=== PATIENT | male | born 1990 | race Two or more races ===

== ENCOUNTER 2022-11-28 09:47 | Inpatient (IN) ==
[2022-11-28] MEDS ORDERED: STAT IV Infusion **Titration per Protocol STA ×3 (10:01→20:56)
[2022-11-28] MEDS ORDERED: NOREPINEPHRINE/D5W 4 MG/250 ML IV ONE (10:07)
[2022-11-28] MEDS ORDERED: SODIUM BICARB 8.4% INJ 50 MEQ/50 ML SYR IV STA ×2 (10:09→23:25)
[2022-11-28 10:14] LABS: iSTAT Creatinine 1.2 mg/dl (0.6-1.3); iSTAT Hemoglobin 14.6 g/dl (14.0-18.0); iSTAT Ionized Calcium 1.13 mmol/l (1.12-1.32); iSTAT Potassium 4.6 mmol/L (3.3-5.0)
[2022-11-28] MEDS ORDERED: Patient's HEIGHT &/or WEIGHT Needed SCH (10:15)
[2022-11-28 10:19] LABS: Hematocrit (blood only) 45.3 % (42.0-52.0); Hemoglobin 14.5 g/dl (14.0-18.0); Mean Corpuscular Volume 96.8 fL (80.0-100.0); Mean Platelet Volume 12.1 fL (9.4-12.4); Nucleated RBC # (auto) 0.04 K/uL (0-0.12); Nucleated RBC % (auto) 0.3 %; Platelet Count 151 K/uL (130-400); RDW Coefficient of Variation 12.9 % (11.5-14.5); RDW Standard Deviation 45.9 fL (36.4-46.3); Red Blood Count 4.68 M/uL (4.70-6.10); White Blood Count 13.59 K/ul (4.8-10.8)
[2022-11-28 10:23] LABS: iSTAT Arterial Blood Gas HCO3 17 meg/L (19-24); iSTAT Arterial Blood Gas pCO2 81 mmHg (35-46); iSTAT Arterial Blood Gas pH 6.93 (7.35-7.45); iSTAT Arterial Blood Gas pO2 147 mmHg (80-95); iSTAT Carbon Dioxide 19 mmol/L (24-31); iSTAT Hematocrit 44 % (42-52); iSTAT Potassium 3.7 mmol/L (3.3-5.0); iSTAT Sodium 138 mmol/L (135-144)
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
[2022-11-28 10:34] LABS: Partial Thromboplastin Ratio 1.3; Partial Thromboplastin Time 35.9 Seconds (21.0-31.0); Prothrombin Time 11.1 Seconds (9.0-12.0)
--- NOTE | 2022-11-28 10:51 | XRay Report ---
XR chest 1V portable HISTORY: 32 years-old Male Chest pain, nonspecific acute chest pain COMPARISON: None TECHNIQUE: AP supine view of the chest FINDINGS: Endotracheal tube overlies the midline, 7 mm superior to the midline. Cardiomediastinal and hilar mariann houettes are within normal limits. No pneumothorax, pleural effusion or overt pulmonary edema. Mild i ll-defined interstitial opacities of the left lung may be artifactual. Bones appear grossly intact. IMPRESSION: Endotracheal tube terminates less than 1 cm superior to the marcelle. Retraction of a few c entimeters with follow-up chest radiograph recommended. ACT 112: Negative or not required by law. The above report was generated using voice recognition software. It may contain grammatical, syntax o r spelling errors. Electronically signed by: Venkata Hannah M.D. 11/28/2022 10:50 AM
[2022-11-28] MEDS ORDERED: OPTIRAY 320 500ml IV ONE (10:52)
[2022-11-28 10:54] LABS: Albumin Globulin Ratio 1.6 (0.9-2); Albumin Level 3.4 gm/dl (3.4-5.0); Bilirubin,Total 0.4 mg/dl (0.2-1.0); Calcium 8.1 mg/dl (8.5-10.1); Creatinine Clr Calc Pharmacy 84.5 ml/min; Est GFR (African American) 93.7 ml/min; Est GFR (Non-African American) 80.9 ml/min; Globulin 2.1 gm/dl (2.5-4.0); Potassium 4.5 mmol/L (3.5-5.1); Total Protein 5.5 gm/dl (6.0-8.3); Troponin I High Sensitivity 91.5 pg/ml (0-20)
[2022-11-28] MEDS ORDERED: Patient's ALLERGY Info needs ENTERED SCH (11:00)
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
[2022-11-28 11:28] LABS: iSTAT Arterial Blood Gas HCO3 22 meg/L (19-24); iSTAT Arterial Blood Gas pCO2 45 mmHg (35-46); iSTAT Arterial Blood Gas pO2 340 mmHg (80-95); iSTAT Carbon Dioxide 23 mmol/L (24-31); iSTAT Hematocrit 49 % (42-52); iSTAT Hemoglobin 16.7 g/dl (14.0-18.0); iSTAT Potassium 3.7 mmol/L (3.3-5.0); iSTAT Sodium 137 mmol/L (135-144)
[2022-11-28 11:32] LABS: ANC (manual) 1.22 K/uL (1.4-6.5); Echinocytes 1+; Eosinophils # (manual) 0.14 K/uL (0-0.50); Eosinophils % (manual) 1 %; Large Granular Lymph # (manua 3.81 K/uL; Large Granular Lymph % (manual) 28 %; Lymphocytes # (manual) 8.29 K/uL (1.2-3.4); Lymphocytes % (manual) 61 %; Monocytes # (manual) 0.27 K/uL (0.11-0.59); Monocytes % (manual) 2 %; Neutrophils # (manual) 1.22 K/uL (1.40-6.50); Neutrophils % (manual) 9 %
[2022-11-28] MEDS ORDERED: ACETAMINOPHEN 325 MG TAB PO PRN (12:02)
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
[2022-11-28] MEDS ORDERED: LABETALOL HCL IV 5 MG/ML 20ML IV ONE (13:45)
[2022-11-28] MEDS ORDERED: METOPROLOL TARTRATE 1 MG/ML VIAL IV STA (13:50)
--- NOTE | 2022-11-28 14:44 | Procedure Note ---
Procedure Note Date of Service November 28, 2022 Note CENTRAL LINE PROCEDURE NOTE: Procedure: Central Line Placement Provider: Ector Denny MD Indication: Central Drug Administration, Poor Venous Access, Multiple Lab Draws Necessary, etc. Anesthesia: None Site: Initial attempt left subclavian, unsuccessful. Transitioned to left femoral under ultrasound guidance Procedure was emergent. The patient is unable to provide consent. No family immediately available A time-out was completed verifying correct patient, procedure, site, positioning, and implants(s) or special equipment if applicable. Initial attempt was made in the subclavian area. I was able to pass the needle under the clavicle however we were unable to access the vein. After several attempts, we made a decision to move to the left groin. Skin was prepped and draped in normal sterile fashion. Ultrasound was used to visualize the vein. Under direct ultrasound visualization, an 18-gauge needle was used to access the left femoral vein. A wire was passed. Needle was removed leaving wire in place. Ultrasound confirmed position of the wire within the vein. The tract was dilated. A previously flushed triple-lumen catheter was advanced over the wire and the guide wire was removed intact from the catheter without issue. Claves were placed on each catheter tip with confirmation of good blood flow from each lumen. Each port was easily flushed with sterile saline. The catheter was placed at 20 cm and sut[address] in place. BioPatch was applied to the catheter and a sterile Tegaderm dressing was applied over the catheter with careful attention to sterility. Patient tolerated procedure well. No immediate complications were met. Estimated blood loss: Less than 10 mL Coding CPT Codes Tubes, Drains, and Vasc Access - Tubes, Drains, and Vasc Access: [id number] Place catheter in vein superior or inferior vena cava ([id number]) Tubes, Drains, and Vasc Access - Tubes, Drains, and Vasc Access: [id number] Ultrasound Guidance For Vascular ([id number]) [facility] [place] Procedure Codes (Charges) Tubes, Drains, and Vasc Access Procedure 1: Tubes, Drains, and Vasc Access: [id number] Place catheter in vein superior or inferior vena cava Procedure 2: Tubes, Drains, and Vasc Access: [id number] Ultrasound Guidance For Vascular
[2022-11-28] MEDS ORDERED: SODIUM BICARB 8.4% INJ 50 MEQ/50 ML SYR IV ONE ×3 (14:45→23:26)
--- NOTE | 2022-11-28 14:45 | Procedure Note ---
Procedure Note Date of Service November 28, 2022 Note ARTERIAL LINE PROCEDURE NOTE: Procedure: Arterial Line Placement Provider: Ector Denny MD Indication: Monitoring on Pressors Anesthesia: None Patient is intubated and on the ventilator. No consent obtainable from the patient no family immediately available. Procedure was emergent. A time-out was completed verifying correct patient, procedure, site, positioning, and implant(s) or special equipment if applicable. Allens test was performed to ensure adequate perfusion. Patients left wrist was prepped and draped in the usual sterile fashion. A 20g Arrow arterial line was introduced into the left radial artery. Catheter was threaded, and the needle was removed with appropriate blood return. Good waveform was observed. The patient tolerated the procedure well. Blood Loss: Minimal Complications: None Coding
[2022-11-28 14:53] LABS: iSTAT Art Bld Gas pCO2 Correct 34 mmHg (35-46); iSTAT Art Bld Gas pH Corrected 7.341 (7.35-7.45); iSTAT Arterial Blood Gas HCO3 19 meg/L (19-24); iSTAT Arterial Blood Gas pCO2 35 mmHg (35-46); iSTAT Arterial Blood Gas pH 7.34 (7.35-7.45); iSTAT Arterial Blood Gas pO2 178 mmHg (80-95); iSTAT Arterial Blood Gas pO2 C 176; iSTAT Carbon Dioxide 20 mmol/L (24-31); iSTAT FiO2 40 %; iSTAT Hematocrit 56 % (42-52); iSTAT Potassium 3.7 mmol/L (3.3-5.0); iSTAT Site Art Line; iSTAT Sodium 140 mmol/L (135-144)
[2022-11-28] MEDS ORDERED: LABETALOL HCL IV 5 MG/ML 20ML IV STA (15:02)
--- NOTE | 2022-11-28 15:03 | XRay Report ---
XR chest 1V portable HISTORY: 32 years-old Male post CVC attempt acute respiratory failure COMPARISON: Chest radiograph of same day TECHNIQUE: Supine AP view of the chest FINDINGS: Repositioned endotracheal tube terminates 4.5 cm superior to the marcelle. Mild right hemidiaphragmatic elevation. No pneumothorax, pleural effusion or overt pulmonary edema. Mildly improved aeration of t he lung bases. Bones appear grossly intact. IMPRESSION: 1. Repositioned endotracheal tube terminates 4.5 cm superior to the marcelle. 2. Mild right hemidiaphragmatic elevation. 3. No pneumothorax. ACT 112: Negative or not required by law. The above report was generated using voice recognition software. It may contain grammatical, syntax o r spelling errors. Electronically signed by: Venkata Hannah M.D. 11/28/2022 3:01 PM
[2022-11-28] MEDS ORDERED: LABETALOL HCL IV 5 MG/ML 20ML IV PRN (15:17)
[2022-11-28] MEDS ORDERED: STAT IV STA ×2 (15:17→19:53)
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
[2022-11-28] MEDS ORDERED: SODIUM CHLORIDE 0.9% 1000ML 1,000 ML IV SCH (15:30)
[2022-11-28] MEDS ORDERED: SODIUM CHLORIDE 3 % 300 ML IV ONE (16:00)
[2022-11-28 16:05] LABS: Potassium 3.8 mmol/L (3.5-5.1)
[2022-11-28 16:06] LABS: BUN Creatinine Ratio 20.2 (10-20); Calcium 9.2 mg/dl (8.5-10.1); Est GFR (African American) 91.8 ml/min; Est GFR (Non-African American) 79.2 ml/min
[2022-11-28] MEDS ORDERED: PHENYLEPHRINE/NSS 25 MG/250 ML BAG IV SCH (16:15)
[2022-11-28] MEDS: NOREPINEPHRINE/D5W 4 MG/250 ML PLCT IV SCH (16:24)
[2022-11-28 16:28] LABS: iSTAT Art Bld Gas pCO2 Correct 45 mmHg (35-46); iSTAT Art Bld Gas pH Corrected 7.322 (7.35-7.45); iSTAT Arterial Blood Gas HCO3 24 meg/L (19-24); iSTAT Arterial Blood Gas pCO2 47 mmHg (35-46); iSTAT Arterial Blood Gas pH 7.31 (7.35-7.45); iSTAT Arterial Blood Gas pO2 132 mmHg (80-95); iSTAT Arterial Blood Gas pO2 C 128; iSTAT Carbon Dioxide 25 mmol/L (24-31); iSTAT FiO2 35 %; iSTAT Hematocrit 54 % (42-52); iSTAT Hemoglobin 18.4 g/dl (14.0-18.0); iSTAT Potassium 3.8 mmol/L (3.3-5.0); iSTAT Site Art Line; iSTAT Sodium 143 mmol/L (135-144)
[2022-11-28] MEDS: SODIUM CHLORIDE 3 % 500 ML IV SCH (16:35)
[2022-11-28] MEDS ORDERED: ATROPINE SULFATE 0.1 MG/ML 10ML SYR IV ONE (17:48)
[2022-11-28] MEDS ORDERED: Nursing to Pharmacy Communication SCH (18:30)
[2022-11-28] MEDS: ICU ELECTROLYTE REPLACEMENT PROTOCOL SCH (18:41)
[2022-11-28] MEDS: ICU Protocol for HYPERglycemia SCH ×2 (18:41→21:07)
[2022-11-28] MEDS ORDERED: POTASSIUM CHLORIDE / WTR 20 MEQ/100 ML PLCT IV STA (18:46)
[2022-11-28] MEDS: PHENYLEPHRINE HCL 100 MG in SODIUM CHLORIDE 0.9% 240 ML IV SCH ×2 (19:18→23:48)
[2022-11-28] MEDS: POTASSIUM CHLORIDE / WTR 20 MEQ/100 ML PLCT IV SCH ×2 (19:19→21:07)
[2022-11-28 19:42] LABS: iSTAT Allen Test Pass; iSTAT Art Bld Gas pCO2 Correct 44 mmHg (35-46); iSTAT Art Bld Gas pH Corrected 7.289 (7.35-7.45); iSTAT Arterial Blood Gas HCO3 21 meg/L (19-24); iSTAT Arterial Blood Gas pCO2 41 mmHg (35-46); iSTAT Arterial Blood Gas pH 7.32 (7.35-7.45); iSTAT Arterial Blood Gas pO2 109 mmHg (80-95); iSTAT Arterial Blood Gas pO2 C 122; iSTAT Carbon Dioxide 22 mmol/L (24-31); iSTAT FiO2 35 %; iSTAT Hematocrit 52 % (42-52); iSTAT Hemoglobin 17.7 g/dl (14.0-18.0); iSTAT Potassium 4.2 mmol/L (3.3-5.0); iSTAT Site Art Line; iSTAT Sodium 149 mmol/L (135-144)
[2022-11-28 19:44] LABS: Calcium 8.1 mg/dl (8.5-10.1); Est GFR (African American) 68.3 ml/min; Est GFR (Non-African American) 58.9 ml/min; Potassium 4.2 mmol/L (3.5-5.1)
[2022-11-28] MEDS ORDERED: ACETAMINOPHEN 1,000 MG/100 ML VIAL IV PRN (19:51)
[2022-11-28] MEDS ORDERED: IBUPROFEN 600 MG TAB PO STA (19:52)
[2022-11-28] MEDS ORDERED: SODIUM CHLORIDE 3 % 150 ML IV ONE (19:53)
[2022-11-28] MEDS: HEPARIN SOD 5,000 UNIT/0.5 ML VIAL SQ SCH (21:49)
[2022-11-28] MEDS: VASOPRESSIN 20 UNITS in 0.9 % SODIUM CHLORIDE 100 ML IV SCH (21:49)
[2022-11-28] MEDS ORDERED: SODIUM CHLORIDE 0.9% 1000ML 500 ML IV ONE (23:12)
[2022-11-28 23:39] LABS: iSTAT Allen Test Pass; iSTAT Art Bld Gas pCO2 Correct 43 mmHg (35-46); iSTAT Art Bld Gas pH Corrected 7.195 (7.35-7.45); iSTAT Arterial Blood Gas HCO3 16 meg/L (19-24); iSTAT Arterial Blood Gas pCO2 37 mmHg (35-46); iSTAT Arterial Blood Gas pH 7.25 (7.35-7.45); iSTAT Arterial Blood Gas pO2 98 mmHg (80-95); iSTAT Arterial Blood Gas pO2 C 124; iSTAT Carbon Dioxide 17 mmol/L (24-31); iSTAT FiO2 35 %; iSTAT Hematocrit 50 % (42-52); iSTAT Potassium 5.4 mmol/L (3.3-5.0); iSTAT Site Art Line; iSTAT Sodium 150 mmol/L (135-144)
[2022-11-29] LABS: BUN Creatinine Ratio 26.3 (10-20); Calcium 5.4 mg/dl (8.5-10.1); Creatinine Clr Calc Pharmacy 72.1 ml/min; Est GFR (African American) 77.4 ml/min; Est GFR (Non-African American) 66.8 ml/min; Potassium 4.2 mmol/L (3.5-5.1)
[2022-11-29] MEDS ORDERED: CALCIUM CHLORIDE 10% 1,000 MG in DEXTROSE 5% 50 ML IV STA (00:04)
[2022-11-29] MEDS ORDERED: CALCIUM CHLORIDE 10% 10 ML SYR IV ONE (00:04)
[2022-11-29] MEDS ORDERED: CALCIUM CHLORIDE 10% 1,000 MG in DEXTROSE 5% 50 ML IV ONE (00:08)
[2022-11-29] MEDS ORDERED: STAT IV STA ×2 (00:23→00:25)
[2022-11-29] MEDS ORDERED: SODIUM CHLORIDE 3 % 300 ML IV ONE (00:23)
[2022-11-29] MEDS ORDERED: CALCIUM GLUCONATE 10% 1,000 MG in DEXTROSE 5% 50 ML IV ONE (00:25)
[2022-11-29 00:53] LABS: INR 1.2 (0.9-1.1)
[2022-11-29 00:59] LABS: iSTAT Arterial Blood Gas HCO3 19 meg/L (19-24); iSTAT Arterial Blood Gas pCO2 39 mmHg (35-46); iSTAT Arterial Blood Gas pH 7.29 (7.35-7.45); iSTAT Arterial Blood Gas pO2 105 mmHg (80-95); iSTAT Carbon Dioxide 20 mmol/L (24-31); iSTAT FiO2 35 %; iSTAT Site Art Line
[2022-11-29] MEDS: PHENYLEPHRINE HCL 100 MG in SODIUM CHLORIDE 0.9% 240 ML IV SCH ×5 (02:27→11:58)
[2022-11-29 04:01] LABS: iSTAT Arterial Blood Gas HCO3 19 meg/L (19-24); iSTAT Arterial Blood Gas pCO2 38 mmHg (35-46); iSTAT Arterial Blood Gas pO2 115 mmHg (80-95); iSTAT Carbon Dioxide 20 mmol/L (24-31); iSTAT FiO2 35 %; iSTAT Site Art Line
[2022-11-29] MEDS: NOREPINEPHRINE/D5W 4 MG/250 ML PLCT IV SCH (04:16)
[2022-11-29 04:37] LABS: INR 1.3 (0.9-1.1); Prothrombin Time 13.2 Seconds (9.0-12.0)
[2022-11-29 06:02] LABS: Appearance Urine Turbid (Clear); Bacteria Urine Automated Negative (Negative); Bilirubin Urine Negative (Negative); Blood Urine 2+ (Negative); Color Urine Dark Yellow; Epithelial Cell Urine Auto >30 /lpf (0-5); Glucose Urine UA Negative (Negative); Ketones Urine Negative (Negative); Leukocyte Esterase Urine Negative (Negative); Nitrite Urine Negative (Negative); Protein Urine 1+ (Negative); RBC Urine Automated 0-4 /hpf (0-4); Specific Gravity Urine 1.026 (1.000-1.030); Urobilinogen Urine Negative (Negative)
[2022-11-29] MEDS: VASOPRESSIN 20 UNITS in 0.9 % SODIUM CHLORIDE 100 ML IV SCH (06:24)
[2022-11-29] MEDS: HEPARIN SOD 5,000 UNIT/0.5 ML VIAL SQ SCH (06:25)
[2022-11-29 06:34] LABS: Albumin Globulin Ratio 1.4 (0.9-2); Albumin Level 3.4 gm/dl (3.4-5.0); BUN Creatinine Ratio 37.9 (10-20); Calcium 8.1 mg/dl (8.5-10.1); Creatinine Clr Calc Pharmacy 97.4 ml/min; Est GFR (African American) 109.3 ml/min; Est GFR (Non-African American) 94.3 ml/min; Globulin 2.5 gm/dl (2.5-4.0); Magnesium 2.1 mg/dl (1.7-2.4); Phosphorus 2.4 mg/dl (2.5-4.9); Potassium 3.4 mmol/L (3.5-5.1); Total Protein 5.9 gm/dl (6.0-8.3)
[2022-11-29] MEDS ORDERED: SODIUM BICARB 8.4% INJ 50 MEQ/50 ML SYR IV STA (06:36)
[2022-11-29] MEDS ORDERED: SODIUM BICARB 8.4% INJ 50 MEQ/50 ML SYR IV ONE (06:37)
[2022-11-29 06:45] LABS: BUN Creatinine Ratio 37.1 (10-20); Calcium 8.1 mg/dl (8.5-10.1); Creatinine Clr Calc Pharmacy 95.5 ml/min; Est GFR (African American) 106.8 ml/min; Est GFR (Non-African American) 92.2 ml/min; Potassium 3.4 mmol/L (3.5-5.1)
[2022-11-29 06:47] LABS: Cast Urine Automated 0 /lpf (0-5)
[2022-11-29] MEDS ORDERED: NORMOSOL-R 250 ML IV ONE (06:48)
[2022-11-29] MEDS ORDERED: STAT IV Infusion **Titration per Protocol STA (06:49)
[2022-11-29] MEDS: ICU ELECTROLYTE REPLACEMENT PROTOCOL SCH (06:51)
[2022-11-29] MEDS ORDERED: NOREPINEPHRINE/D5W 4 MG/250 ML PLCT IV SCH (07:00)
[2022-11-29 07:10] LABS: Hematocrit (blood only) 52.5 % (42.0-52.0); Hemoglobin 18.2 g/dl (14.0-18.0); Mean Corpuscular Hgb Conc 34.7 g/dL (32.0-36.0); Mean Corpuscular Volume 89.4 fL (80.0-100.0); Mean Platelet Volume 11.8 fL (9.4-12.4); Platelet Count 82 K/uL (130-400); RDW Standard Deviation 45.8 fL (36.4-46.3); Red Blood Count 5.87 M/uL (4.70-6.10); White Blood Count 7.06 K/ul (4.8-10.8)
--- NOTE | 2022-11-29 07:25 | XRay Report ---
XR chest 1V portable CLINICAL HISTORY: evaluate endotracheal tube placement lung leon COMPARISON STUDY: Chest CT and chest radiograph November 28, 2022. FINDINGS: The tip of the endotracheal tube is 4.3 cm above the marcelle. Tip of nasogastric tube is wit hin the body of the stomach. Lung volumes are mildly diminished. There is no pneumothorax. There is n o pleural effusion. Bilateral infrahilar opacities are noted. No evidence for pulmonary edema. Cardio mediastinal silhouette is stable. Mild elevation of the right hemidiaphragm is again noted. IMPRESSION: 1. Satisfactory positioning of the endotracheal and nasogastric tubes. 2. Bilateral infrahilar opacities. 3. No evidence for pulmonary edema. ACT 112: Negative or not required by law. Electronically signed by: David Arguello M.D. 11/29/2022 7:23 AM
[2022-11-29] MEDS: POTASSIUM CHLORIDE / WTR 20 MEQ/100 ML PLCT IV SCH ×3 (07:37→11:58)
[2022-11-29] MEDS: ICU Protocol for HYPERglycemia SCH ×2 (08:10→11:58)
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
[2022-11-29 09:12] LABS: iSTAT Arterial Blood Gas HCO3 20 meg/L (19-24); iSTAT Arterial Blood Gas pCO2 49 mmHg (35-46); iSTAT Arterial Blood Gas pH 7.22 (7.35-7.45); iSTAT Arterial Blood Gas pO2 167 mmHg (80-95); iSTAT Carbon Dioxide 22 mmol/L (24-31); iSTAT FiO2 100 %; iSTAT Site L Radial
[2022-11-29 09:26] LABS: iSTAT Arterial Blood Gas HCO3 25 meg/L (19-24); iSTAT Arterial Blood Gas pCO2 104 mmHg (35-46); iSTAT Arterial Blood Gas pH 6.99 (7.35-7.45); iSTAT Arterial Blood Gas pO2 85 mmHg (80-95); iSTAT Carbon Dioxide 28 mmol/L (24-31); iSTAT Site L Radial
[2022-11-29] MEDS ORDERED: Nursing to Pharmacy Communication SCH (09:30)
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
[2022-11-29] MEDS ORDERED: PANTOprazole 40 MG in SYRINGE 0 ML IV SCH (11:00)
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
[2022-11-29] MEDS: SODIUM CHLORIDE 3 % 500 ML IV SCH (11:58)
--- NOTE | 2022-11-30 07:47 | Electrocardiogram Report ---
Test Reason : Blood Pressure : / mmHG Vent. Rate : 110 BPM Atrial Rate : 110 BPM P-R Int : 122 ms QRS Dur : 086 ms QT Int : 366 ms P-R-T Axes : 049 021 013 degrees QTc Int : 495 ms Sinus tachycardia Otherwise normal ECG When compared with ECG of 28-NOV-2022 10:00, (unconfirmed) Sinus rhythm has replaced Atrial fibrillation ST no longer depressed in Inferior leads ST no longer depressed in Lateral leads Confirmed by Ari Tilley ([id number]) on 11/30/2022 7:46:59 AM Referred By: REFERRED SELF Confirmed By:Antohny Tilley
--- NOTE | 2022-11-30 07:49 | Electrocardiogram Report ---
Test Reason : Blood Pressure : / mmHG Vent. Rate : 119 BPM Atrial Rate : 060 BPM P-R Int : 000 ms QRS Dur : 096 ms QT Int : 340 ms P-R-T Axes : 000 073 036 degrees QTc Int : 478 ms Atrial fibrillation with rapid ventricular response ST segement changes concerning for ischemia Abnormal ECG No previous ECGs available Confirmed by Ari Tilley ([id number]) on 11/30/2022 7:48:46 AM Referred By: REFERRED SELF Confirmed By:Anthony Tilley
--- NOTE | 2022-12-01 11:08 | Electrocardiogram Report ---
Test Reason : Blood Pressure : / mmHG Vent. Rate : 110 BPM Atrial Rate : 110 BPM P-R Int : 124 ms QRS Dur : 092 ms QT Int : 376 ms P-R-T Axes : 045 022 013 degrees QTc Int : 508 ms Poor data quality, interpretation may be adversely affected Sinus tachycardia Otherwise normal ECG Confirmed by Ari Tilley ([id number]) on 12/01/2022 11:08:07 AM Referred By: REFERRED SELF Confirmed By:Anthony Tilley
== END 2022-11-29 18:31 | disposition expired | DRG 296 ==
LOC: ED 09:47 → 1E 12:02 → SUATTDRO 12:02 → 1E 13:11